=== PATIENT | female | born 1990 | race Caucasian/White ===

== ENCOUNTER 2019-03-19 12:19 | Emergency (ER) | payer BC ==
[2019-03-19] MEDS ORDERED: ACYCLOVIR IVPB ONE (13:33)
[2019-03-19] MEDS ORDERED: NS 0.9% IVPB ONE (13:33)
[2019-03-19 13:55] LABS: ABS Basophils 0.1 10^3/ul (0-0.2); ABS Eosinophils 0.1 10^3/ul (0-0.6); ABS Lymphocytes 1.6 10^3/ul (1.0-4.8); ABS Monocytes 0.6 10^3/ul (0-0.8); ABS Neutrophils 2.9 10^3/ul (1.5-7.7); Eosinophil % 2.4 %; Hematocrit 36 % (35-47); Hemoglobin 11.5 g/dL (12.0-16.0); Lymphocyte % 29.9 %; Mean Corpuscular HGB Conc 32 g/dL (31-36); Mean Corpuscular Hemoglobin 26 pg (27-31); Mean Corpuscular Volume 80 fL (80-97); Mean Platelet Volume 8.4 fL (7.4-10.4); Platelet Count 236 10^3/uL (150-450); Red Blood Count 4.46 10^6 /uL (3.70-4.87); Red Cell Distribution Width 18 % (10.5-15); White Blood Count 5.3 10^3/uL (3.5-10.8)
[2019-03-19] MEDS ORDERED: Acyclovir IV(*) 700 MG in NS 0.9% 250 ML* 250 ML IVPB ONE (14:00)
[2019-03-19 14:03] LABS: INR 1.09 (0.82-1.09)
--- NOTE | 2019-03-19 14:04 | ED ---
Complex/Multi-Sys Presentation - HPI Summary HPI Summary: This patient is a 29 year old F presenting to [facility] [place] accompanied by family with a chief complaint of an infection since last week, with more severe symptoms occurring on Sunday03/17/19. The pt reported that last week her lymph nodes were swollen and then she woke on Sunday with her L eye swollen shut. The pt stated that she has been on 3 different ABX since the onset of the infection last week and is currently on clindamycin but has only take 3 doses. The pt reports symptoms of sore throat, congestion, epistaxis, head aches, pain on the L jaw, and the L eye is sore and itchy. The pt denies any CP and N/V/D. She reports no aggravating factors. She has a previous history of shingles. - History Of Current Complaint Chief Complaint: EDGeneral Time Seen by Provider: 03/19/19 13:03 Hx Obtained From: Patient Onset/Duration: Gradual Onset, Lasting Days - 3 days since more severe symptoms appeared, Lasting Weeks - 1, Still Present Timing: Constant Severity Currently: None Aggravating Factor(s): none Alleviating Factor(s): none Associated Signs And Symptoms: Positive: Headache, Other - positive: sore throat , L jaw pain, L eye swelling, L eye itchy, congestion, epistaxis,. Negative: SOB, Chest Pain, Nausea, Vomiting, Diarrhea Related History: Recent Illness - has been on ABX for the past week - Allergies/Home Medications Allergies/Adverse Reactions: Allergies Allergy/AdvReac Type Severity Reaction Status Date / Time codeine Allergy Vomiting Verified 03/19/19 12:26 Home Medications: Home Medications Cetirizine* [ZyrTEC 10 MG TAB*] 10 mg PO DAILY 03/19/19 [History Confirmed 03/19] Clindamycin HCl 150 mg PO TID 03/19/19 [History Confirmed 03/19/19] DOXYcycline CAP(*) [DOXYcycline 100MG CAP(*)] 100 mg PO BID 03/19/19 [History Confirmed 03/19/19] Gentamicin 0.3% OPHTH.SOLN* 1 drop LEFT EYE Q4H 03/19/19 [History Confirmed ] Ibuprofen TAB* [Motrin TAB* 600 MG] 600 mg PO Q8H PRN 03/19/19 [History Confirmed 03/19/19] Sertraline* [Zoloft*] 100 mg PO DAILY 03/19/19 [History Confirmed 03/19/19] PMH/Surg Hx/FS Hx/Imm Hx Previously Healthy: No Infectious Disease History: No Infectious Disease History: Reports: Hx Shingles - 2 years ago Denies: Traveled Outside the [place] in Last 30 Days - Social History Alcohol Use: Occasionally Hx Substance Use: No Substance Use Type: Reports: None Hx Tobacco Use: No Smoking Status (MU): Never Smoked Tobacco Review of Systems Positive: Other - L eye swollen and itchy Positive: Epistaxis, Sore Throat, Nasal Discharge Negative: Chest Pain Negative: Shortness Of Breath Negative: Vomiting, Diarrhea, Nausea Positive: Other - L jaw pain Positive: Headache All Other Systems Reviewed And Are Negative: Yes Physical Exam - Summary Physical Exam Summary: Constitutional: Well-developed, Well-nourished, Alert. (-) Distressed Skin: Warm, Dry, L periorbital swelling, erythema, 3 scabbed over 2 mm lesions 1 lateral to the eye, scabbed over lesions over the l lip. HENT: L periorbital swelling Eyes: subconjunctival hematoma with conjunctiva injections, discharge from L eye Neck: Musculoskeletal ROM normal neck. (-) JVD, (-) Stridor, (-) Tracheal deviation Cardio: Rhythm regular, rate normal, Heart sounds normal; Intact distal pulses; The pedal pulses are 2+ and symmetric. Radial pulses are 2+ and symmetric. (-) Murmur Pulmonary/Chest wall: Effort normal. (-) Respiratory distress, (-) Wheezes, (-) Rales Abd: Soft, (-) tenderness, (-) Distension, (-) Guarding, (-) Rebound Musculoskeletal: (-) Edema Lymph: (-) Cervical adenopathy Neuro: Alert, Oriented x3 Psych: Mood and affect Normal Triage Information Reviewed: Yes Vital Signs On Initial Exam: Initial Vitals Temp Pulse Resp BP Pulse Ox 99.3 F 117 16 129/88 99 03/19/19 12:21 03/19/19 12:21 03/19/19 12:21 03/19/19 12:21 03/19/19 12:21 Vital Signs Reviewed: Yes Diagnostics - Vital Signs Vital Signs Temp Pulse Resp BP Pulse Ox 03/19/19 12:55 98.9 F 03/19/19 12:49 102 125/70 03/19/19 12:47 102 99 03/19/19 12:21 99.3 F 117 16 129/88 99 - Laboratory Result Diagrams: 03/19/19 13:41 03/19/19 13:41 Lab Statement: Any lab studies that have been ordered have been reviewed, and results considered in the medical decision making process. Complex Multi-Symp Course/Dx Course Of Treatment: This patient is a 29 year old F presenting to [facility] accompanied by family with a chief complaint of an infection since last week, with more severe symptoms occurring on Sunday03/17/19. The pt reported that last week her lymph nodes were swollen and then she woke on Sunday with her L eye swollen shut. The pt had labs conducted with abnormal findings in Hgb 11.5 L , MCH 26 L, RDW 18 H, BUN 5 L, BUN/Creatinine Ratio 7.8 L. The pt will be d/c home with a Dx of Herpes Zoster Blepheritis and Herpes Zoster Conjunctivitits. She will be instructed to return to the ED with any new or worsening symptoms and to follow up with her PCP in 3 days. - Diagnoses Provider Diagnoses: Herpes zoster blepharitis, Herpes zoster conjunctivitis Discharge - Sign-Out/Discharge Documenting (check all that apply): Patient Departure Patient Received Moderate/Deep Sedation with Procedure: No - Discharge Plan Condition: Stable Disposition: HOME Prescriptions: ValACYclovir (*) [Valtrex 1 GM(*)] 1 gm PO TID #30 tab Patient Education Materials: Moises (ED) Print Language: NIGERIEN Referrals: Hugh Zhang [Medical Doctor] - Lisa Evans NP [Primary Care Provider] - Additional Instructions: Go to Dr. Zhang's office today. YOu have an appointment at 3:45pm - Billing Disposition and Condition Condition: STABLE Disposition: Home - Attestation Statements Document Initiated by Scribe: Yes Documenting Scribe: Kanu Almeida Provider For Whom Scribe is Documenting (Include Credential): Shanon De Luna MD Scribe Attestation: Kanu Evans, scribed for Shanon Lee MD on 03/19/19 at 1858. Scribe Documentation Reviewed: Yes Provider Attestation: The documentation as recorded by the scribeKanu accurately reflects the service I personally performed and the decisions made by me, Shanon Lee MD Status of Scribe Document: Viewed
[2019-03-19 14:12] LABS: Albumin 4.1 g/dL (3.2-5.2); Albumin/Globulin Ratio 1.4 (1-3); BUN/Creatinine Ratio 7.8 (8-20); Calcium 9.2 mg/dL (8.6-10.3); EGFR African American 133.7 (>60); EGFR Non-African American 110.5 (>60); Globulin 2.9 g/dL (2-4); Potassium 4.2 mmol/L (3.5-5.0); Total Bilirubin 0.2 mg/dL (0.2-1.0)
[2019-03-19 15:13] VITALS: BP 121/72
[2019-03-20 19:37] LABS: HSV 1 PCR Positive (Negative)
[2019-03-20 19:37] LABS: HSV 1 PCR Positive (Negative)
[2019-03-21 00:04] LABS: Varicella Zoster Result Negative (Negative)
[2019-03-21 00:04] LABS: Varicella Zoster Result Negative (Negative)
--- NOTE | 2019-03-21 12:12 | PN ---
Progress Note - Progress Note Date of Service: 03/19/19 Note: HSV1 positive. I called and spoke with pt. today at 1100 and informed her of results. Pt. was already treated with Valtrex. Will f.u with PCP. No change in treatment needed.
== END 2019-03-19 15:13 | disposition home or self-care (01) ==
LOC: ED 12:19
DX: B02.39 Other herpes zoster eye disease (principal); B02.31 Zoster conjunctivitis; Z88.5 Allergy status to narcotic agent; Z79.899 Other long term (current) drug therapy
CPT/HCPCS: 36415; 80053; 85025; 85610; 87040; 87529; 87798; 96365; 99283; J0133